=== PATIENT | male | born 1960 | race Caucasian/White ===

== ENCOUNTER 2016-08-10 13:02 | Emergency (ER) | payer BC ==
[~2016-08-10] VITALS: Ht 182.9 cm; Wt 76.0 kg
[~2016-08-10 13:02] MED LIST: IBUP200C; IBUP200C PO; INSU100I13 SQ-INSULIN; INSU100V5 SQ-INSULIN; RANI150T8; TRAM-28 PO
[2016-08-10 13:10] VITALS: BP 109/80
[2016-08-10] MEDS ORDERED: INSU100V8 SQ (13:19)
[2016-08-10] MEDS ORDERED: MORPHINE SULFATE 4 MG/ML, 1ML ONE ×2 (13:22→14:29)
[2016-08-10] MEDS ORDERED: ONDANSETRON 2MG/ML, 2ML ONE (13:23)
[2016-08-10] MEDS: MORPHINE SULFATE 4 MG/ML, 1ML IVPush PRN ×2 (13:29→14:34)
[2016-08-10] MEDS ORDERED: ONDANSETRON 2MG/ML, 2ML IVPush ONE (13:30)
[2016-08-10 13:32] LABS: PATH.CAST-FLAG NOT PRESENT; SPERM-FLAG NOT PRESENT; SRC-FLAG NOT PRESENT; XTAL-FLAG NOT PRESENT; YLC-FLAG NOT PRESENT
[2016-08-10 13:50] LABS: BLOOD UREA NITROGEN 5 mg/dL (7-18)
[2016-08-10 13:53] LABS: ASPARTATE AMINO TRANSFERASE 61 U/L (15-37)
[2016-08-10] MEDS ORDERED: SODIUM CHLORIDE 0.9% 1,000ML IVBOLUS ONE (14:00)
[2016-08-10] MEDS ORDERED: INSULIN REGULAR 100 UNITS/ML, 3ML VIAL IVPush ONE (14:00)
== END 2016-08-10 14:54 | disposition home or self-care (01) ==
LOC: ED 13:44
DX: K80.20 Calculus of gallbladder without cholecystitis without obstruction (principal); J90 Pleural effusion, not elsewhere classified; C64.9 Malignant neoplasm of unspecified kidney, except renal pelvis; C78.7 Secondary malignant neoplasm of liver and intrahepatic bile duct; E11.9 Type 2 diabetes mellitus without complications; F17.200 Nicotine dependence, unspecified, uncomplicated; K76.0 Fatty (change of) liver, not elsewhere classified; Z90.5 Acquired absence of kidney; Z85.528 Personal history of other malignant neoplasm of kidney
CPT/HCPCS: 36415; 74176; 80053; 81001; 83690; 85025; 96361; 96374; 96375; 96376; 99285; J2405; J7030

== ENCOUNTER 2016-08-14 10:47 | Inpatient (IN) | payer BC ==
[~2016-08-14] VITALS: Ht 182.9 cm; Wt 81.2 kg
[~2016-08-14 10:47] MED LIST changes: +INSU100V8 SQ
[2016-08-14] MEDS ORDERED: SODIUM CHLORIDE 0.9% 1,000ML IVBOLUS ONE (11:30)
[2016-08-14] MEDS ORDERED: INSULIN REGULAR 100 UNITS/ML, 3ML VIAL SQ-INSULIN ONE (11:30)
[2016-08-14] MEDS ORDERED: SODIUM CHLORIDE 0.9% 1,000 ML IV ONE (11:41)
[2016-08-14] MEDS ORDERED: HYDROmorphone 1 MG/ML, 1ML ONE (11:41)
[2016-08-14] MEDS ORDERED: LORazepam 2 MG/ML, 1ML ONE (11:59)
[2016-08-14] MEDS ORDERED: LORazepam 2 MG/ML, 1ML IVPush ONE (12:00)
[2016-08-14] MEDS ORDERED: HYDROmorphone 2 MG/ML, 1ML IVPush ONE (12:00)
[2016-08-14 12:17] LABS: ASPARTATE AMINO TRANSFERASE 19 U/L (15-37); BLOOD UREA NITROGEN 17 mg/dL (7-18)
[2016-08-14 12:19] LABS: ACETAMINOPHEN 7 mcg/mL (10-30)
[2016-08-14] MEDS ORDERED: INSULIN SINGLE DOSE, ER SQ-INSULIN ONE (12:21)
[2016-08-14] MEDS ORDERED: POTASSIUM CHLORIDE 20 MEQ TAB.ER.PRT PO ONE (12:30)
[2016-08-14] MEDS ORDERED: CEFTRIAXONE PMX 1GM/50ML 50 ML ONE (12:50)
[2016-08-14] MEDS ORDERED: POTASSIUM CHLORIDE 20 MEQ TAB.ER.PRT ONE (12:50)
[2016-08-14] MEDS ORDERED: AZITHROMYCIN 500 MG in SODIUM CHLORIDE 0.9% 250 ML IV ONE (13:00)
[2016-08-14] MEDS ORDERED: CEFTRIAXONE PMX 1GM/50ML 50 ML IV ONE (13:00)
[2016-08-14] MEDS ORDERED: ONDANSETRON 2MG/ML, 2ML ONE (13:38)
[2016-08-14] MEDS ORDERED: LORazepam 2 MG/ML, 1ML IVPush PRN (14:30)
[2016-08-14] MEDS ORDERED: CEFTRIAXONE PMX 1GM/50ML 50 ML IV SCH (14:30)
[2016-08-14] MEDS ORDERED: POTASSIUM PHOSPHATE 22 MEQ in SODIUM CHLORIDE 0.9% 500 ML IV ONE (15:00)
[2016-08-14] MEDS ORDERED: PHARMACY MAY ADJ FOR RENAL FX MC PRN (15:30)
[2016-08-14] MEDS ORDERED: ENOXAPARIN 40 MG/0.4 ML SQ SCH (15:30)
[2016-08-14] MEDS ORDERED: BISACODYL 10 MG SUPP PR PRN (15:30)
[2016-08-14] MEDS ORDERED: ONDANSETRON 2MG/ML, 2ML IVPB PRN (15:30)
[2016-08-14] MEDS ORDERED: DOCUSATE 100 MG CAPSULE PO PRN (15:30)
[2016-08-14] MEDS: OXYcodone IR 5MG TABLET PO PRN ×2 (15:51→22:30)
[2016-08-14] MEDS: LACTOBACILLUS CHEW TABLET PO SCH ×2 (15:52→21:10)
[2016-08-14] MEDS: GUAIFENESIN 200 MG TABLET PO SCH ×2 (15:52→21:10)
[2016-08-14] MEDS: POTASSIUM CHLORIDE 20 MEQ TAB.ER.PRT PO SCH (15:52)
[2016-08-14] MEDS: CLINDAMYCIN PMX 900MG/50ML 50 ML IV SCH (16:03)
[2016-08-14] MEDS: INSULIN DETEMIR 100 UNITS/ML, PEN SQ-INSULIN SCH (16:41)
[2016-08-14] MEDS: INSULIN ASPART 100 UNITS/ML, PEN SQ-INSULIN SCH ×2 (16:42→21:10)
[2016-08-14 17:35] LABS: BLOOD UREA NITROGEN 17 mg/dL (7-18)
[2016-08-14] MEDS: SODIUM CHLORIDE 0.9% 1,000 ML IV SCH (18:22)
[2016-08-14 18:54] LABS: PATH.CAST-FLAG NOT PRESENT; SPERM-FLAG NOT PRESENT; SRC-FLAG NOT PRESENT; XTAL-FLAG NOT PRESENT; YLC-FLAG NOT PRESENT
[2016-08-14 19:01] VITALS: BP 127/75
[2016-08-14] MEDS: MORPHINE SULFATE 4 MG/ML, 1ML IVPush PRN (19:32)
[2016-08-14] MEDS ORDERED: OMNIPAQUE 350 MG/ML, 100ML BOTTLE ONE (20:58)
[2016-08-15] MEDS: CLINDAMYCIN PMX 900MG/50ML 50 ML IV SCH ×3 (00:14→16:21)
[2016-08-15] MEDS: ACETAMINOPHEN 325 MG TABLET PO PRN ×2 (03:02→13:27)
[2016-08-15] MEDS: MORPHINE SULFATE 4 MG/ML, 1ML IVPush PRN ×2 (03:02→08:34)
[2016-08-15 03:22] VITALS: BP 147/77
[2016-08-15] MEDS: SODIUM CHLORIDE 0.9% 1,000 ML IV SCH ×2 (05:00→21:29)
[2016-08-15] MEDS: INSULIN DETEMIR 100 UNITS/ML, PEN SQ-INSULIN SCH ×2 (05:00→16:22)
[2016-08-15 05:49] LABS: BLOOD UREA NITROGEN 14 mg/dL (7-18)
[2016-08-15] MEDS: LACTOBACILLUS CHEW TABLET PO SCH ×4 (05:58→21:27)
[2016-08-15] MEDS: GUAIFENESIN 200 MG TABLET PO SCH ×4 (05:58→21:27)
[2016-08-15] MEDS: INSULIN ASPART 100 UNITS/ML, PEN SQ-INSULIN SCH ×4 (07:00→21:28)
[2016-08-15 07:59] VITALS: BP 109/66
[2016-08-15] MEDS: POTASSIUM CHLORIDE 20 MEQ TAB.ER.PRT PO SCH (08:00)
[2016-08-15] MEDS: CEFTRIAXONE PMX 1GM/50ML 50 ML IV SCH ×2 (08:35→21:27)
[2016-08-15] MEDS: FOLIC ACID 1 MG TABLET PO SCH (09:00)
[2016-08-15] MEDS: THIAMINE 100MG TABLET PO SCH (09:00)
[2016-08-15] MEDS: LISINOPRIL 5 MG TABLET PO SCH (09:00)
[2016-08-15] MEDS ORDERED: MORPHINE SULFATE 4 MG/ML, 1ML IVPush PRN (11:00)
[2016-08-15] MEDS: DOXYCYCLINE 100 MG in DEXTROSE 5% 250 ML IV SCH (11:26)
[2016-08-15] MEDS: HYDROmorphone 1 MG/ML, 1ML IV PRN ×4 (11:54→23:29)
[2016-08-15] MEDS ORDERED: POTASSIUM PHOSPHATE 22 MEQ in SODIUM CHLORIDE 0.9% 500 ML IV ONE (12:30)
[2016-08-15 13:59] VITALS: BP 113/71
[2016-08-15 19:17] VITALS: BP 106/65
[2016-08-16] MEDS: CLINDAMYCIN PMX 900MG/50ML 50 ML IV SCH ×3 (00:01→16:16)
[2016-08-16] MEDS: DOXYCYCLINE 100 MG in DEXTROSE 5% 250 ML IV SCH ×2 (00:24→13:00)
[2016-08-16] MEDS: ACETAMINOPHEN 325 MG TABLET PO PRN ×2 (00:56→19:44)
[2016-08-16 01:07] VITALS: BP 95/57
[2016-08-16] MEDS: HYDROmorphone 1 MG/ML, 1ML IV PRN ×7 (02:35→22:38)
[2016-08-16] MEDS: INSULIN DETEMIR 100 UNITS/ML, PEN SQ-INSULIN SCH ×2 (05:00→17:17)
[2016-08-16 05:16] LABS: BLOOD UREA NITROGEN 12 mg/dL (7-18)
[2016-08-16] MEDS: LACTOBACILLUS CHEW TABLET PO SCH ×4 (05:37→19:45)
[2016-08-16] MEDS: GUAIFENESIN 200 MG TABLET PO SCH ×4 (05:41→19:45)
[2016-08-16] MEDS: INSULIN ASPART 100 UNITS/ML, PEN SQ-INSULIN SCH ×4 (07:00→22:38)
[2016-08-16 07:30] VITALS: BP 109/67
[2016-08-16] MEDS: CEFTRIAXONE PMX 1GM/50ML 50 ML IV SCH ×2 (09:38→22:34)
[2016-08-16] MEDS: SODIUM CHLORIDE 0.9% 1,000 ML IV SCH ×2 (11:16→21:49)
[2016-08-16 12:52] VITALS: BP 116/73
[2016-08-16] MEDS: FOLIC ACID 1 MG TABLET PO SCH (12:59)
[2016-08-16] MEDS: LISINOPRIL 5 MG TABLET PO SCH (12:59)
[2016-08-16] MEDS: THIAMINE 100MG TABLET PO SCH (12:59)
[2016-08-16 19:35] VITALS: BP 108/66
[2016-08-17] MEDS: CLINDAMYCIN PMX 900MG/50ML 50 ML IV SCH ×3 (00:41→18:36)
[2016-08-17 01:14] VITALS: BP 111/68
[2016-08-17] MEDS: HYDROmorphone 1 MG/ML, 1ML IV PRN ×3 (01:41→08:20)
[2016-08-17] MEDS: DOXYCYCLINE 100 MG in DEXTROSE 5% 250 ML IV SCH ×2 (01:41→17:10)
[2016-08-17] MEDS: INSULIN DETEMIR 100 UNITS/ML, PEN SQ-INSULIN SCH ×2 (04:55→17:57)
[2016-08-17 05:30] LABS: BLOOD UREA NITROGEN 13 mg/dL (7-18)
[2016-08-17] MEDS: GUAIFENESIN 200 MG TABLET PO SCH ×4 (05:56→21:59)
[2016-08-17] MEDS: LACTOBACILLUS CHEW TABLET PO SCH ×4 (05:56→21:59)
[2016-08-17] MEDS: INSULIN ASPART 100 UNITS/ML, PEN SQ-INSULIN SCH ×4 (07:00→22:09)
[2016-08-17 08:00] VITALS: BP 115/68
[2016-08-17] MEDS ORDERED: POTASSIUM CHLORIDE 20 MEQ in SODIUM CHLORIDE 0.9% 250 ML IV ONE (08:00)
[2016-08-17] MEDS: CEFTRIAXONE PMX 1GM/50ML 50 ML IV SCH (08:19)
[2016-08-17] MEDS: FOLIC ACID 1 MG TABLET PO SCH (08:41)
[2016-08-17] MEDS: THIAMINE 100MG TABLET PO SCH (08:41)
[2016-08-17] MEDS: LISINOPRIL 5 MG TABLET PO SCH (08:41)
[2016-08-17] MEDS ORDERED: BUPIVACAINE/PF-EPI 0.5% 1:200K ONE (08:51)
[2016-08-17] MEDS ORDERED: FENTANYL PF 250 MCG/5ML ONE (09:36)
[2016-08-17] MEDS ORDERED: MIDAZOLAM 1 MG/ML, 2ML ONE (09:36)
[2016-08-17] MEDS ORDERED: EPHEDRINE 50 MG/ML, 1ML ONE (09:43)
[2016-08-17] MEDS ORDERED: PHENYLEPHRINE 10 MG/ML ONE (09:43)
[2016-08-17] MEDS ORDERED: ROCURONIUM 10 MG/ML ONE (09:43)
[2016-08-17] MEDS ORDERED: SUCCINYLCHOLINE 20 MG/ML, 10ML ONE (09:43)
[2016-08-17] MEDS ORDERED: GLYCOPYRROLATE 0.2MG/1ML ONE (09:43)
[2016-08-17] MEDS ORDERED: PROPOFOL 10 MG/ML, 20ML ONE (09:43)
[2016-08-17] MEDS ORDERED: ONDANSETRON 2MG/ML, 2ML ONE (09:43)
[2016-08-17] MEDS ORDERED: NEOSTIGMINE 1 MG/ML, 10ML ONE (09:43)
[2016-08-17] MEDS ORDERED: TALC 30 GM AERO.PWD INTRAPL ONE (09:53)
[2016-08-17] MEDS ORDERED: OXYcodone 5 MG/5 ML ORAL.SOL UDC PO PRN (10:30)
[2016-08-17] MEDS ORDERED: hydrALAzine 20 MG/ML, 1ML IV PRN (10:30)
[2016-08-17] MEDS ORDERED: ONDANSETRON 2MG/ML, 2ML IVPush PRN (10:30)
[2016-08-17] MEDS ORDERED: HYDROmorphone 1 MG/ML, 1ML IV PRN (10:30)
[2016-08-17] MEDS ORDERED: LABETALOL 5MG/ML, 20ML IV PRN (10:30)
[2016-08-17] MEDS ORDERED: ALBUTEROL SULFATE 2.5 MG/3 ML NPPB PRN (10:30)
[2016-08-17] MEDS ORDERED: FENTANYL PF 100 MCG/2ML ONE (11:17)
[2016-08-17] MEDS ORDERED: OXYcodone 5 MG/5 ML ORAL.SOL UDC ONE (11:17)
[2016-08-17] MEDS: FENTANYL PF 100 MCG/2ML IV PRN ×2 (11:24→11:41)
[2016-08-17] MEDS ORDERED: HYDROmorphone 1 MG/ML, 1ML ONE (12:09)
[2016-08-17] MEDS: HYDROmorphone 2 MG/ML, 1ML IVPush PRN ×4 (14:16→23:08)
[2016-08-17] MEDS: SODIUM CHLORIDE 0.9% 1,000 ML IV SCH ×2 (14:32→17:30)
[2016-08-17] MEDS: OXYcodone IR 5MG TABLET PO PRN (18:06)
[2016-08-17] MEDS: CEFTRIAXONE 1,000 MG in SODIUM CHLORIDE 0.9% 50 ML IVPB SCH (21:58)
[2016-08-17 23:09] VITALS: BP 98/59
[2016-08-18] MEDS: SODIUM CHLORIDE 0.9% 1,000 ML IV SCH ×2 (00:41→10:48)
[2016-08-18] MEDS: HYDROmorphone 2 MG/ML, 1ML IVPush PRN ×9 (02:18→22:34)
[2016-08-18] MEDS: CLINDAMYCIN PMX 900MG/50ML 50 ML IV SCH ×3 (02:19→18:29)
[2016-08-18 04:59] VITALS: BP 96/52
[2016-08-18] MEDS: DOXYCYCLINE 100 MG in DEXTROSE 5% 250 ML IV SCH ×2 (05:12→16:55)
[2016-08-18 05:34] LABS: BLOOD UREA NITROGEN 13 mg/dL (7-18)
[2016-08-18] MEDS: INSULIN DETEMIR 100 UNITS/ML, PEN SQ-INSULIN SCH ×2 (05:47→16:55)
[2016-08-18 06:44] LABS: DIFF TOTAL CELLS COUNTED 100 CELL DIFF
[2016-08-18 06:49] LABS: ANISOCYTOSIS 1+; VERIFY COUNTS? YES
[2016-08-18] MEDS: INSULIN ASPART 100 UNITS/ML, PEN SQ-INSULIN SCH ×4 (07:00→21:26)
[2016-08-18] MEDS: LACTOBACILLUS CHEW TABLET PO SCH ×4 (07:18→21:25)
[2016-08-18] MEDS: GUAIFENESIN 200 MG TABLET PO SCH ×4 (07:18→21:25)
[2016-08-18 07:51] VITALS: BP 95/64
[2016-08-18] MEDS: LISINOPRIL 5 MG TABLET PO SCH (09:00)
[2016-08-18] MEDS: CEFTRIAXONE 1,000 MG in SODIUM CHLORIDE 0.9% 50 ML IVPB SCH ×2 (09:56→21:25)
[2016-08-18] MEDS: THIAMINE 100MG TABLET PO SCH (09:56)
[2016-08-18] MEDS: FOLIC ACID 1 MG TABLET PO SCH (09:56)
[2016-08-18] MEDS: OXYcodone IR 5MG TABLET PO PRN ×3 (09:57→21:25)
[2016-08-18 14:14] VITALS: BP 103/59
[2016-08-18 18:59] VITALS: BP 110/62
[2016-08-19] MEDS: CLINDAMYCIN PMX 900MG/50ML 50 ML IV SCH ×2 (02:04→10:04)
[2016-08-19] MEDS: HYDROmorphone 2 MG/ML, 1ML IVPush PRN ×7 (02:04→21:19)
[2016-08-19 04:14] VITALS: BP 96/58
[2016-08-19] MEDS: DOXYCYCLINE 100 MG in DEXTROSE 5% 250 ML IV SCH (05:32)
[2016-08-19] MEDS: INSULIN DETEMIR 100 UNITS/ML, PEN SQ-INSULIN SCH ×2 (05:33→16:40)
[2016-08-19] MEDS: OXYcodone IR 5MG TABLET PO PRN ×3 (05:38→18:01)
[2016-08-19 05:39] LABS: BLOOD UREA NITROGEN 13 mg/dL (7-18)
[2016-08-19] MEDS: LACTOBACILLUS CHEW TABLET PO SCH ×4 (06:30→21:23)
[2016-08-19] MEDS: GUAIFENESIN 200 MG TABLET PO SCH ×4 (06:30→21:23)
[2016-08-19] MEDS: INSULIN ASPART 100 UNITS/ML, PEN SQ-INSULIN SCH ×4 (07:41→22:04)
[2016-08-19 07:46] VITALS: BP 114/60
[2016-08-19] MEDS: LISINOPRIL 5 MG TABLET PO SCH (09:20)
[2016-08-19] MEDS: CEFTRIAXONE 1,000 MG in SODIUM CHLORIDE 0.9% 50 ML IVPB SCH (09:20)
[2016-08-19] MEDS: THIAMINE 100MG TABLET PO SCH (09:20)
[2016-08-19] MEDS: FOLIC ACID 1 MG TABLET PO SCH (09:20)
[2016-08-19] MEDS: ENOXAPARIN 40 MG/0.4 ML SQ SCH (11:26)
[2016-08-19 14:20] VITALS: BP 109/62
[2016-08-19] MEDS: POLYETHYLENE GLYCOL 17 GM PACKET PO SCH (14:32)
[2016-08-19] MEDS: AMPICILLIN/SULBACTAM 3 GM in SODIUM CHLORIDE 0.9% 100 ML IV SCH ×2 (16:05→21:23)
[2016-08-19 19:23] VITALS: BP 108/62
[2016-08-20] MEDS: OXYcodone IR 5MG TABLET PO PRN ×4 (00:49→18:45)
[2016-08-20] MEDS: HYDROmorphone 2 MG/ML, 1ML IVPush PRN ×9 (01:10→23:18)
[2016-08-20 01:30] VITALS: BP 102/53
[2016-08-20] MEDS: AMPICILLIN/SULBACTAM 3 GM in SODIUM CHLORIDE 0.9% 100 ML IV SCH ×4 (04:17→22:30)
[2016-08-20 05:12] LABS: BLOOD UREA NITROGEN 8 mg/dL (7-18)
[2016-08-20] MEDS: LACTOBACILLUS CHEW TABLET PO SCH ×4 (05:33→22:33)
[2016-08-20] MEDS: GUAIFENESIN 200 MG TABLET PO SCH ×4 (05:33→22:33)
[2016-08-20] MEDS: INSULIN DETEMIR 100 UNITS/ML, PEN SQ-INSULIN SCH ×2 (05:46→17:09)
[2016-08-20] MEDS: INSULIN ASPART 100 UNITS/ML, PEN SQ-INSULIN SCH ×4 (07:00→22:37)
[2016-08-20] MEDS: POLYETHYLENE GLYCOL 17 GM PACKET PO SCH (08:30)
[2016-08-20] MEDS: LISINOPRIL 5 MG TABLET PO SCH (08:30)
[2016-08-20] MEDS ORDERED: ALBUTEROL SULFATE 2.5 MG/3 ML NPPB PRN (08:30)
[2016-08-20] MEDS: THIAMINE 100MG TABLET PO SCH (08:30)
[2016-08-20] MEDS: FOLIC ACID 1 MG TABLET PO SCH (08:30)
[2016-08-20 08:37] VITALS: BP 115/66
[2016-08-20] MEDS: FUROSEMIDE 40 MG/4 ML IV SCH (10:17)
[2016-08-20] MEDS: DOCUSATE 100 MG CAPSULE PO SCH ×2 (10:17→22:33)
[2016-08-20] MEDS: ENOXAPARIN 40 MG/0.4 ML SQ SCH (10:42)
[2016-08-20 15:20] VITALS: BP 107/59
[2016-08-20 20:25] VITALS: BP 117/60
[2016-08-21 02:07] VITALS: BP 117/59
[2016-08-21] MEDS: HYDROmorphone 2 MG/ML, 1ML IVPush PRN ×6 (02:43→21:42)
[2016-08-21] MEDS: GUAIFENESIN 200 MG TABLET PO SCH ×4 (05:38→21:22)
[2016-08-21] MEDS: AMPICILLIN/SULBACTAM 3 GM in SODIUM CHLORIDE 0.9% 100 ML IV SCH ×4 (05:38→21:42)
[2016-08-21] MEDS: LACTOBACILLUS CHEW TABLET PO SCH ×4 (05:38→21:22)
[2016-08-21] MEDS: OXYcodone IR 5MG TABLET PO PRN ×4 (05:48→23:58)
[2016-08-21] MEDS: INSULIN DETEMIR 100 UNITS/ML, PEN SQ-INSULIN SCH ×2 (05:53→16:16)
[2016-08-21] MEDS: INSULIN ASPART 100 UNITS/ML, PEN SQ-INSULIN SCH ×4 (07:16→21:22)
[2016-08-21 07:57] VITALS: BP 120/69
[2016-08-21] MEDS: FUROSEMIDE 40 MG/4 ML IV SCH (08:20)
[2016-08-21] MEDS: POLYETHYLENE GLYCOL 17 GM PACKET PO SCH (09:00)
[2016-08-21] MEDS: LISINOPRIL 5 MG TABLET PO SCH (09:31)
[2016-08-21] MEDS: FOLIC ACID 1 MG TABLET PO SCH (09:32)
[2016-08-21] MEDS: THIAMINE 100MG TABLET PO SCH (09:32)
[2016-08-21] MEDS: DOCUSATE 100 MG CAPSULE PO SCH ×2 (09:33→21:22)
[2016-08-21] MEDS: ENOXAPARIN 40 MG/0.4 ML SQ SCH (11:46)
[2016-08-21 14:53] VITALS: BP 111/62
[2016-08-21 14:57] VITALS: BP 109/62
[2016-08-21 21:30] VITALS: BP 117/66
[2016-08-22] MEDS: HYDROmorphone 2 MG/ML, 1ML IVPush PRN ×5 (01:02→13:53)
[2016-08-22] MEDS: AMPICILLIN/SULBACTAM 3 GM in SODIUM CHLORIDE 0.9% 100 ML IV SCH ×4 (04:13→22:06)
[2016-08-22] MEDS: INSULIN DETEMIR 100 UNITS/ML, PEN SQ-INSULIN SCH ×2 (04:27→16:54)
[2016-08-22 04:35] VITALS: BP 107/66
[2016-08-22] MEDS: GUAIFENESIN 200 MG TABLET PO SCH ×4 (06:37→21:02)
[2016-08-22] MEDS: LACTOBACILLUS CHEW TABLET PO SCH ×4 (06:37→21:02)
[2016-08-22] MEDS: OXYcodone IR 5MG TABLET PO PRN ×4 (06:38→22:06)
[2016-08-22] MEDS: INSULIN ASPART 100 UNITS/ML, PEN SQ-INSULIN SCH ×4 (07:00→21:12)
[2016-08-22] MEDS: FOLIC ACID 1 MG TABLET PO SCH (08:38)
[2016-08-22] MEDS: THIAMINE 100MG TABLET PO SCH (08:38)
[2016-08-22] MEDS: DOCUSATE 100 MG CAPSULE PO SCH ×2 (08:39→21:03)
[2016-08-22] MEDS: POLYETHYLENE GLYCOL 17 GM PACKET PO SCH (08:39)
[2016-08-22] MEDS: FUROSEMIDE 40 MG/4 ML IV SCH (08:39)
[2016-08-22] MEDS: LISINOPRIL 5 MG TABLET PO SCH (08:40)
[2016-08-22 08:41] VITALS: BP 108/56
[2016-08-22] MEDS: ENOXAPARIN 40 MG/0.4 ML SQ SCH (10:11)
[2016-08-22 12:38] VITALS: BP 103/60
[2016-08-22] MEDS ORDERED: HYDROmorphone 2 MG/ML, 1ML IVPush PRN (17:00)
[2016-08-22] MEDS ORDERED: OXYcodone IR 5MG TABLET ONE (17:34)
[2016-08-22] MEDS ORDERED: HYDROmorphone 1 MG/ML, 1ML IV ONE (18:30)
[2016-08-22 20:02] VITALS: BP 114/67
[2016-08-23 01:14] VITALS: BP 115/69
[2016-08-23] MEDS: OXYcodone IR 5MG TABLET PO PRN ×5 (02:23→21:32)
[2016-08-23] MEDS: AMPICILLIN/SULBACTAM 3 GM in SODIUM CHLORIDE 0.9% 100 ML IV SCH ×4 (03:47→23:28)
[2016-08-23 04:07] LABS: BLOOD UREA NITROGEN 7 mg/dL (7-18)
[2016-08-23] MEDS: INSULIN ASPART 100 UNITS/ML, PEN SQ-INSULIN SCH ×4 (06:26→21:33)
[2016-08-23] MEDS: LACTOBACILLUS CHEW TABLET PO SCH ×4 (06:30→21:32)
[2016-08-23] MEDS: GUAIFENESIN 200 MG TABLET PO SCH ×4 (06:30→21:32)
[2016-08-23 08:09] VITALS: BP 117/66
[2016-08-23] MEDS: DOCUSATE 100 MG CAPSULE PO SCH ×2 (09:51→21:32)
[2016-08-23] MEDS: THIAMINE 100MG TABLET PO SCH (09:51)
[2016-08-23] MEDS: LISINOPRIL 5 MG TABLET PO SCH (09:52)
[2016-08-23] MEDS: FOLIC ACID 1 MG TABLET PO SCH (09:52)
[2016-08-23] MEDS: FUROSEMIDE 40 MG/4 ML IV SCH (09:52)
[2016-08-23] MEDS: POLYETHYLENE GLYCOL 17 GM PACKET PO SCH (09:52)
[2016-08-23] MEDS ORDERED: ALBUTEROL SULFATE 2.5 MG/3 ML ONE (10:01)
[2016-08-23] MEDS: INSULIN DETEMIR 100 UNITS/ML, PEN SQ-INSULIN SCH ×2 (10:13→21:33)
[2016-08-23] MEDS ORDERED: ALBUTEROL SULFATE 2.5 MG/3 ML NPPB PRN (10:30)
[2016-08-23] MEDS: ENOXAPARIN 40 MG/0.4 ML SQ SCH (11:40)
[2016-08-23 13:46] VITALS: BP 103/63
[2016-08-23 20:07] VITALS: BP 114/69
[2016-08-24 01:14] VITALS: BP 121/70
[2016-08-24] MEDS: OXYcodone IR 5MG TABLET PO PRN ×6 (02:02→22:35)
[2016-08-24] MEDS: AMPICILLIN/SULBACTAM 3 GM in SODIUM CHLORIDE 0.9% 100 ML IV SCH ×4 (05:42→23:15)
[2016-08-24] MEDS: LACTOBACILLUS CHEW TABLET PO SCH ×4 (05:42→22:35)
[2016-08-24] MEDS: GUAIFENESIN 200 MG TABLET PO SCH ×4 (05:42→22:35)
[2016-08-24] MEDS: INSULIN ASPART 100 UNITS/ML, PEN SQ-INSULIN SCH ×4 (06:00→22:36)
[2016-08-24 06:17] LABS: BLOOD UREA NITROGEN 9 mg/dL (7-18)
[2016-08-24] MEDS: FUROSEMIDE 40 MG/4 ML IV SCH (08:26)
[2016-08-24] MEDS: LISINOPRIL 5 MG TABLET PO SCH (08:26)
[2016-08-24] MEDS: FOLIC ACID 1 MG TABLET PO SCH (08:26)
[2016-08-24] MEDS: DOCUSATE 100 MG CAPSULE PO SCH ×2 (08:26→22:35)
[2016-08-24] MEDS: THIAMINE 100MG TABLET PO SCH (08:26)
[2016-08-24] MEDS: INSULIN DETEMIR 100 UNITS/ML, PEN SQ-INSULIN SCH ×2 (08:30→22:36)
[2016-08-24] MEDS: POLYETHYLENE GLYCOL 17 GM PACKET PO SCH (08:30)
[2016-08-24 09:38] VITALS: BP 107/64
[2016-08-24] MEDS: ENOXAPARIN 40 MG/0.4 ML SQ SCH (11:44)
[2016-08-24 13:46] VITALS: BP 104/66
[2016-08-24 19:44] VITALS: BP 104/68
[2016-08-24] MEDS: ACETAMINOPHEN 325 MG TABLET PO PRN (23:27)
[2016-08-25 02:54] VITALS: BP 106/63
[2016-08-25] MEDS: LACTOBACILLUS CHEW TABLET PO SCH ×4 (05:47→22:09)
[2016-08-25] MEDS: OXYcodone IR 5MG TABLET PO PRN ×5 (05:47→22:21)
[2016-08-25] MEDS: GUAIFENESIN 200 MG TABLET PO SCH ×4 (05:47→22:09)
[2016-08-25] MEDS: AMPICILLIN/SULBACTAM 3 GM in SODIUM CHLORIDE 0.9% 100 ML IV SCH ×4 (05:47→23:58)
[2016-08-25 06:31] LABS: BLOOD UREA NITROGEN 11 mg/dL (7-18)
[2016-08-25 07:42] VITALS: BP 112/63
[2016-08-25] MEDS: FUROSEMIDE 40 MG/4 ML IV SCH (08:09)
[2016-08-25] MEDS: DOCUSATE 100 MG CAPSULE PO SCH ×2 (08:11→22:09)
[2016-08-25] MEDS: LISINOPRIL 5 MG TABLET PO SCH (08:11)
[2016-08-25] MEDS: THIAMINE 100MG TABLET PO SCH (08:11)
[2016-08-25] MEDS: FOLIC ACID 1 MG TABLET PO SCH (08:11)
[2016-08-25] MEDS: INSULIN DETEMIR 100 UNITS/ML, PEN SQ-INSULIN SCH ×2 (08:13→22:21)
[2016-08-25] MEDS: INSULIN ASPART 100 UNITS/ML, PEN SQ-INSULIN SCH ×4 (08:13→22:20)
[2016-08-25] MEDS: POLYETHYLENE GLYCOL 17 GM PACKET PO SCH (08:15)
[2016-08-25] MEDS: ENOXAPARIN 40 MG/0.4 ML SQ SCH (12:12)
[2016-08-25 13:39] VITALS: BP 101/61
[2016-08-25 19:33] VITALS: BP 114/69
[2016-08-26 02:30] VITALS: BP 104/62
[2016-08-26] MEDS: OXYcodone IR 5MG TABLET PO PRN ×5 (02:31→23:15)
[2016-08-26] MEDS: LACTOBACILLUS CHEW TABLET PO SCH ×3 (06:00→22:20)
[2016-08-26] MEDS: AMPICILLIN/SULBACTAM 3 GM in SODIUM CHLORIDE 0.9% 100 ML IV SCH ×2 (06:00→11:30)
[2016-08-26] MEDS: GUAIFENESIN 200 MG TABLET PO SCH ×3 (06:07→22:20)
[2016-08-26] MEDS: DOCUSATE 100 MG CAPSULE PO SCH ×2 (09:15→22:20)
[2016-08-26] MEDS: FUROSEMIDE 40 MG/4 ML IV SCH (09:15)
[2016-08-26] MEDS: FOLIC ACID 1 MG TABLET PO SCH (09:15)
[2016-08-26] MEDS: THIAMINE 100MG TABLET PO SCH (09:15)
[2016-08-26] MEDS: LISINOPRIL 5 MG TABLET PO SCH (09:15)
[2016-08-26] MEDS: ENOXAPARIN 40 MG/0.4 ML SQ SCH (10:45)
[2016-08-26] MEDS: INSULIN ASPART 100 UNITS/ML, PEN SQ-INSULIN SCH ×3 (11:00→23:00)
[2016-08-26] MEDS: INSULIN DETEMIR 100 UNITS/ML, PEN SQ-INSULIN SCH (23:00)
[2016-08-27] MEDS: AMPICILLIN/SULBACTAM 3 GM in SODIUM CHLORIDE 0.9% 100 ML IV SCH (00:30)
[2016-08-27] MEDS: OXYcodone IR 5MG TABLET PO PRN (04:50)
[2016-08-27] MEDS: LACTOBACILLUS CHEW TABLET PO SCH (05:06)
[2016-08-27] MEDS: GUAIFENESIN 200 MG TABLET PO SCH (05:06)
[2016-08-27] MEDS: INSULIN ASPART 100 UNITS/ML, PEN SQ-INSULIN SCH (10:00)
[2016-08-27 16:54] LABS: BLOOD UREA NITROGEN 14 mg/dL (7-18)
== END 2016-08-27 12:00 | disposition home or self-care (01) | DRG 853 ==
LOC: ED 12:32 → EDIP 12:33 → ED 12:59 → 3NE 14:40 → 4NOR 08-17 12:51 → DCLOUNGE 08-27 11:28
PROVIDERS: ADMIT Internal Medicine; ATTEND Internal Medicine
PROC: 0BDN4ZZ Extraction of Right Pleura, Percutaneous Endoscopic Approach (ICD-10-PCS; principal; 2016-08-17 09:30)
PROC: 02HV33Z Insertion of Infusion Device into Superior Vena Cava, Percutaneous Approach (ICD-10-PCS; 2016-08-20)
PROC: B548ZZA Ultrasonography of Superior Vena Cava, Guidance (ICD-10-PCS; 2016-08-20)
PROC: B5181ZA Fluoroscopy of Superior Vena Cava using Low Osmolar Contrast, Guidance (ICD-10-PCS; 2016-08-20)
DX: A41.9 Sepsis, unspecified organism (principal); E43 Unspecified severe protein-calorie malnutrition; J18.9 Pneumonia, unspecified organism; J86.9 Pyothorax without fistula; J96.01 Acute respiratory failure with hypoxia; E87.1 Hypo-osmolality and hyponatremia; J98.11 Atelectasis; J90 Pleural effusion, not elsewhere classified; K86.3 Pseudocyst of pancreas; E11.65 Type 2 diabetes mellitus with hyperglycemia; Z79.4 Long term (current) use of insulin; Z85.528 Personal history of other malignant neoplasm of kidney; Z80.42 Family history of malignant neoplasm of prostate; Z66 Do not resuscitate; I10 Essential (primary) hypertension; E87.6 Hypokalemia; Z88.8 Allergy status to other drugs, medicaments and biological substances; Z91.041 Radiographic dye allergy status; D53.9 Nutritional anemia, unspecified; D63.8 Anemia in other chronic diseases classified elsewhere; D75.89 Other specified diseases of blood and blood-forming organs; E83.39 Other disorders of phosphorus metabolism; E87.8 Other disorders of electrolyte and fluid balance, not elsewhere classified; F17.210 Nicotine dependence, cigarettes, uncomplicated; K70.30 Alcoholic cirrhosis of liver without ascites; K76.0 Fatty (change of) liver, not elsewhere classified; K80.20 Calculus of gallbladder without cholecystitis without obstruction; Z80.7 Family history of other malignant neoplasms of lymphoid, hematopoietic and related tissues; Z91.19 Patient's noncompliance with other medical treatment and regimen; Z90.5 Acquired absence of kidney; F10.20 Alcohol dependence, uncomplicated
CPT/HCPCS: 36415; 36569; 71010; 71260; 76937; 77001; 80048; 80053; 80307; 81001; 82010; 82803; 82962; 83036; 83605; 83690; 83735; 84100; 84145; 85025; 85651; 86140; 87040; 87070; 87075; 87205; 88304; 93005; 94640; 96361; 96372; 96374; C1729; J0295; J0456; J0696; J1170; J1650; J1815; J1940; J2250; J2405; J2704; J2710; J3010; J3480; J3490; J7060; J7613; Q9967; C1751; J0330; J2060; J2370; J7030; J7040; J7050

== ENCOUNTER 2017-07-21 16:56 | Inpatient (IN) | payer MEDICAID, OTHER ==
[~2017-07-21] VITALS: Ht 177.8 cm; Wt 78.0 kg
[~2017-07-21 16:56] MED LIST changes: -IBUP200C; -IBUP200C PO; +IBUP200C5; +IBUP200C5 PO; +RANI150T23; -RANI150T8; -TRAM-28 PO; +TRAM-47 PO
[2017-07-21] MEDS ORDERED: SODIUM CHLORIDE FLUSH 10ML SYR IVF ONE (17:30)
[2017-07-21 17:46] LABS: BASOPHILS # (AUTO) 0.04 x10^3/uL (0-0.1); BASOPHILS % (AUTO) 0 % (0-1); EOSINOPHILS # (AUTO) 0.09 x10^3/uL (0-0.4); EOSINOPHILS % (AUTO) 1 % (1-7); LYMPHOCYTES # (AUTO) 1.78 x10^3/uL (1-3.4); LYMPHOCYTES % (AUTO) 15 % (22-44); MD NO; MEAN CORPUSCULAR HEMOGLOBIN 35.6 pg (27.5-34.5); MEAN CORPUSCULAR HGB CONC 34.7 g/dL (33.2-36.2); MEAN CORPUSCULAR VOLUME 102.6 fL (81-97); MEAN PLATELET VOLUME 6.6 fL (7.4-10.4); MONOCYTES # (AUTO) 0.81 x10^3/uL (0.2-0.8); MONOCYTES % (AUTO) 7 % (2-9); NEUTROPHILS # (AUTO) 9.57 x10^3/uL (1.8-6.8); NEUTROPHILS % (AUTO) 78 % (42-75); PLATELET COUNT 374 x10^3/uL (130-400); RED BLOOD COUNT 4.17 x10^6/uL (4.38-5.82); RED CELL DISTRIBUTION WIDTH 14.9 % (9.4-14.8)
[2017-07-21 17:49] LABS: ALANINE AMINOTRANSFERASE 68 U/L (12-78); ALBUMIN 2.4 g/dL (3.4-5.0); ANION GAP 7 mmol/L (5-15); CHLORIDE 105 mmol/L (98-107); CREATININE 0.86 mg/dL (0.7-1.3)
[2017-07-21 17:54] LABS: ALKALINE PHOSPHATASE 207 U/L (45-117); BILIRUBIN,TOTAL 0.5 mg/dL (0.2-1.0); TOTAL PROTEIN 6.1 g/dL (6.4-8.2); TROPONIN I < 0.015 ng/mL (0.000-0.045)
[2017-07-21] MEDS ORDERED: GABA300C10 PO (18:24)
[2017-07-21] MEDS ORDERED: INSU100I34 SC (18:24)
[2017-07-21] MEDS ORDERED: ZOLP-413 PO (18:29)
[2017-07-21] MEDS ORDERED: INSU100I18 SC (18:29)
[2017-07-21] MEDS ORDERED: LISI5TAB7 PO (18:29)
[2017-07-21] MEDS ORDERED: METO5TAB2 PO (18:29)
[2017-07-21] MEDS ORDERED: ONDA4TAB10 PO (18:29)
[2017-07-21 18:58] LABS: MICROSCOPIC NOT IND
[2017-07-21 18:59] LABS: CULTURE INDICATED? NO
[2017-07-21] MEDS ORDERED: LORazepam 2 MG/ML, 1ML ONE ×2 (19:30→21:14)
[2017-07-21] MEDS: LORazepam 2 MG/ML, 1ML IVPush PRN ×2 (19:32→21:16)
[2017-07-21] MEDS ORDERED: DEXAMETHASONE 4 MG TABLET ONE (19:45)
[2017-07-21] MEDS ORDERED: DEXAMETHASONE 4 MG/ML, 1ML PO ONE (20:00)
[2017-07-21] MEDS ORDERED: AZITHROMYCIN 500 MG in SODIUM CHLORIDE 0.9% 250 ML IV ONE (20:00)
[2017-07-21] MEDS ORDERED: CEFTRIAXONE PMX 1GM/50ML 50 ML IVPB ONE (20:00)
[2017-07-21] MEDS ORDERED: CEFTRIAXONE PMX 1GM/50ML 50 ML ONE (20:02)
[2017-07-21] MEDS ORDERED: OMNIPAQUE 350 MG/ML, 100ML BOTTLE ONE (21:04)
[2017-07-21] MEDS ORDERED: hydrALAzine 20 MG/ML, 1ML IVPush PRN (22:00)
[2017-07-21] MEDS ORDERED: ONDANSETRON 2MG/ML, 2ML IVPush PRN (22:00)
[2017-07-21] MEDS ORDERED: LORazepam 2 MG/ML, 1ML IV PRN ×5 (22:00)
[2017-07-21] MEDS ORDERED: ONDANSETRON ODT 4 MG PO PRN (22:00)
[2017-07-21] MEDS ORDERED: ACETAMINOPHEN 325 MG TABLET PO PRN (22:00)
[2017-07-21] MEDS ORDERED: SODIUM CHLORIDE 0.9% 1,000ML IVBOLUS ONE (22:00)
[2017-07-21] MEDS ORDERED: PROMETHAZINE 12.5 MG SUPP PR PRN (22:00)
[2017-07-21] MEDS ORDERED: LEVOFLOXACIN/PMX 750MG/150ML 150 ML IV SCH (22:00)
[2017-07-21] MEDS: SODIUM CHLORIDE 0.9% 1,000 ML IV SCH (23:42)
[2017-07-21] MEDS: ENOXAPARIN 40 MG/0.4 ML SQ SCH (23:49)
[2017-07-21 23:54] VITALS: BP 123/78
[2017-07-22] MEDS ORDERED: MAGNESIUM SULFATE PMX 2GM/50ML 50 ML IV ONE (00:30)
[2017-07-22 02:06] VITALS: BP 132/89
[2017-07-22] MEDS: HYDROcodone/CHLORPHENIR ORAL SUSP PO PRN (03:45)
[2017-07-22 05:31] LABS: BASOPHILS # (AUTO) 0.04 x10^3/uL (0-0.1); BASOPHILS % (AUTO) 1 % (0-1); EOSINOPHILS # (AUTO) 0.05 x10^3/uL (0-0.4); EOSINOPHILS % (AUTO) 1 % (1-7); LYMPHOCYTES # (AUTO) 0.84 x10^3/uL (1-3.4); LYMPHOCYTES % (AUTO) 15 % (22-44); MD NO; MEAN CORPUSCULAR HEMOGLOBIN 34.6 pg (27.5-34.5); MEAN CORPUSCULAR HGB CONC 33.6 g/dL (33.2-36.2); MEAN PLATELET VOLUME 6.5 fL (7.4-10.4); MONOCYTES # (AUTO) 0.52 x10^3/uL (0.2-0.8); MONOCYTES % (AUTO) 9 % (2-9); NEUTROPHILS # (AUTO) 4.11 x10^3/uL (1.8-6.8); NEUTROPHILS % (AUTO) 74 % (42-75); PLATELET COUNT 195 x10^3/uL (130-400); RED BLOOD COUNT 3.53 x10^6/uL (4.38-5.82)
[2017-07-22 05:33] LABS: CHLORIDE 107 mmol/L (98-107)
[2017-07-22 05:45] LABS: ALANINE AMINOTRANSFERASE 47 U/L (12-78); ALBUMIN 1.8 g/dL (3.4-5.0); ALKALINE PHOSPHATASE 152 U/L (45-117); ANION GAP 8 mmol/L (5-15); BILIRUBIN,TOTAL 0.8 mg/dL (0.2-1.0); CALCIUM 7.8 mg/dL (8.5-10.1); CREATININE 0.86 mg/dL (0.7-1.3); TOTAL PROTEIN 4.9 g/dL (6.4-8.2)
[2017-07-22] MEDS ORDERED: INSULIN LISPRO 100 UNITS/ML, PEN SQ-INSULIN SCH (07:00)
[2017-07-22] MEDS: INSULIN LISPRO 100 UNITS/ML, PEN SQ-INSULIN SCH ×4 (07:00→20:04)
[2017-07-22 07:12] VITALS: BP 135/80
[2017-07-22] MEDS: FOLIC ACID 1 MG TABLET PO SCH (10:13)
[2017-07-22] MEDS: THIAMINE 100MG TABLET PO SCH (10:13)
[2017-07-22] MEDS: MULTIVITAMINS/MINERALS TABLET PO SCH (10:13)
[2017-07-22] MEDS: GABAPENTIN 300 MG CAPSULE PO SCH ×3 (10:52→20:01)
[2017-07-22] MEDS: SODIUM CHLORIDE 0.9% 1,000 ML IV SCH (12:00)
[2017-07-22] MEDS: INSULIN GLARGINE 100 UNITS/ML, PEN SQ-INSULIN SCH (12:04)
[2017-07-22] MEDS ORDERED: ALBU18HF INH (12:15)
[2017-07-22 12:36] LABS: CLOSTRIDIUM DIFFICILE ANTIGEN POSITIVE; CLOSTRIDIUM DIFFICILE TOXIN NEGATIVE (Negative)
[2017-07-22 13:03] VITALS: BP 157/98
[2017-07-22] MEDS ORDERED: ALBUTEROL/IPRATROPIUM 2.5MG/0.5MG, 3 ML ONE (13:21)
[2017-07-22] MEDS: CEFTRIAXONE PMX 2GM/50ML 50 ML IV SCH (14:26)
[2017-07-22] MEDS ORDERED: ALBUTEROL/IPRATROPIUM 2.5MG/0.5MG, 3 ML NPPB PRN (14:30)
[2017-07-22] MEDS: ALBUTEROL/IPRATROPIUM 2.5MG/0.5MG, 3 ML NPPB SCH ×2 (14:31→20:31)
[2017-07-22] MEDS: DOXYCYCLINE 100 MG in DEXTROSE 5% 250 ML IV SCH (16:09)
[2017-07-22] MEDS: GUAIFENESIN ER 600 MG TABLET PO SCH (20:01)
[2017-07-22 20:24] VITALS: BP 157/96
[2017-07-22] MEDS: ENOXAPARIN 40 MG/0.4 ML SQ SCH (22:00)
[2017-07-23] MEDS: DOXYCYCLINE 100 MG in DEXTROSE 5% 250 ML IV SCH ×2 (03:03→15:01)
[2017-07-23 04:23] VITALS: BP 139/94
[2017-07-23] MEDS: ALBUTEROL/IPRATROPIUM 2.5MG/0.5MG, 3 ML NPPB SCH ×4 (05:02→19:43)
[2017-07-23 05:58] LABS: HEMOGLOBIN A1C 6.9 % (4.2-6.3)
[2017-07-23 06:42] VITALS: BP 128/86
[2017-07-23 07:30] LABS: ALANINE AMINOTRANSFERASE 45 U/L (12-78); ALBUMIN 2.1 g/dL (3.4-5.0); ANION GAP 8 mmol/L (5-15); CHLORIDE 103 mmol/L (98-107); CREATININE 0.81 mg/dL (0.7-1.3)
[2017-07-23 07:32] LABS: ALKALINE PHOSPHATASE 155 U/L (45-117); BILIRUBIN,TOTAL 0.5 mg/dL (0.2-1.0); TOTAL PROTEIN 5.4 g/dL (6.4-8.2)
[2017-07-23] MEDS: LORazepam 2 MG/ML, 1ML IVPush PRN (08:25)
[2017-07-23] MEDS: FOLIC ACID 1 MG TABLET PO SCH (08:26)
[2017-07-23] MEDS: GUAIFENESIN ER 600 MG TABLET PO SCH ×2 (08:26→21:41)
[2017-07-23] MEDS: THIAMINE 100MG TABLET PO SCH (08:26)
[2017-07-23] MEDS: GABAPENTIN 300 MG CAPSULE PO SCH ×3 (08:26→21:41)
[2017-07-23] MEDS: INSULIN LISPRO 100 UNITS/ML, PEN SQ-INSULIN SCH ×4 (08:26→21:00)
[2017-07-23] MEDS: MULTIVITAMINS/MINERALS TABLET PO SCH (08:26)
[2017-07-23] MEDS: INSULIN GLARGINE 100 UNITS/ML, PEN SQ-INSULIN SCH (08:26)
[2017-07-23] MEDS ORDERED: CHLORDIAZEPOXIDE 25 MG CAPSULE PO PRN (10:30)
[2017-07-23 12:46] VITALS: BP 142/93
[2017-07-23] MEDS: CEFTRIAXONE PMX 2GM/50ML 50 ML IV SCH (14:02)
[2017-07-23] MEDS: CHLORDIAZEPOXIDE 25 MG CAPSULE PO SCH ×2 (16:32→21:41)
[2017-07-23 19:30] VITALS: BP 144/99
[2017-07-23] MEDS: ENOXAPARIN 40 MG/0.4 ML SQ SCH (21:41)
[2017-07-24 01:01] VITALS: BP 159/94
[2017-07-24] MEDS: DOXYCYCLINE 100 MG in DEXTROSE 5% 250 ML IV SCH ×2 (01:15→14:47)
[2017-07-24] MEDS: LORazepam 2 MG/ML, 1ML IVPush PRN ×3 (01:25→23:22)
[2017-07-24 05:27] LABS: BASOPHILS # (AUTO) 0.03 x10^3/uL (0-0.1); BASOPHILS % (AUTO) 1 % (0-1); EOSINOPHILS # (AUTO) 0.06 x10^3/uL (0-0.4); EOSINOPHILS % (AUTO) 2 % (1-7); LYMPHOCYTES # (AUTO) 0.63 x10^3/uL (1-3.4); LYMPHOCYTES % (AUTO) 19 % (22-44); MD NO; MEAN CORPUSCULAR HEMOGLOBIN 34.8 pg (27.5-34.5); MEAN CORPUSCULAR HGB CONC 33.7 g/dL (33.2-36.2); MEAN CORPUSCULAR VOLUME 103.2 fL (81-97); MEAN PLATELET VOLUME 6.4 fL (7.4-10.4); MONOCYTES # (AUTO) 0.28 x10^3/uL (0.2-0.8); MONOCYTES % (AUTO) 9 % (2-9); NEUTROPHILS # (AUTO) 2.28 x10^3/uL (1.8-6.8); NEUTROPHILS % (AUTO) 70 % (42-75); PLATELET COUNT 169 x10^3/uL (130-400)
[2017-07-24 06:25] VITALS: BP 142/96
[2017-07-24] MEDS: ALBUTEROL/IPRATROPIUM 2.5MG/0.5MG, 3 ML NPPB SCH ×4 (06:40→20:00)
[2017-07-24] MEDS: INSULIN LISPRO 100 UNITS/ML, PEN SQ-INSULIN SCH ×4 (07:00→23:08)
[2017-07-24] MEDS ORDERED: POTASSIUM CHLORIDE 20 MEQ TAB.ER.PRT PO ONE (09:30)
[2017-07-24] MEDS ORDERED: FUROSEMIDE 20 MG/2 ML IV ONE (09:30)
[2017-07-24] MEDS: FOLIC ACID 1 MG TABLET PO SCH (09:36)
[2017-07-24] MEDS: MULTIVITAMINS/MINERALS TABLET PO SCH (09:36)
[2017-07-24] MEDS: CHLORDIAZEPOXIDE 25 MG CAPSULE PO SCH ×3 (09:36→23:07)
[2017-07-24] MEDS: GABAPENTIN 300 MG CAPSULE PO SCH ×3 (09:36→23:07)
[2017-07-24] MEDS: GUAIFENESIN ER 600 MG TABLET PO SCH ×2 (09:36→23:07)
[2017-07-24] MEDS: INSULIN GLARGINE 100 UNITS/ML, PEN SQ-INSULIN SCH (09:37)
[2017-07-24] MEDS: THIAMINE 100MG TABLET PO SCH (09:37)
[2017-07-24] MEDS: VANCOMYCIN 50 MG/ML ORAL SUSP PO SCH ×3 (10:28→23:22)
[2017-07-24 12:53] VITALS: BP 126/86
[2017-07-24] MEDS: CEFTRIAXONE PMX 2GM/50ML 50 ML IV SCH (13:10)
[2017-07-24 18:39] VITALS: BP 118/82
[2017-07-24] MEDS: DOXYCYCLINE 100MG CAP PO SCH (23:08)
[2017-07-24] MEDS: ENOXAPARIN 40 MG/0.4 ML SQ SCH (23:08)
[2017-07-25 02:47] VITALS: BP 127/89
[2017-07-25] MEDS: VANCOMYCIN 50 MG/ML ORAL SUSP PO SCH ×4 (05:30→21:43)
[2017-07-25 07:19] LABS: ANION GAP 6 mmol/L (5-15); BASOPHILS # (AUTO) 0.02 x10^3/uL (0-0.1); BASOPHILS % (AUTO) 1 % (0-1); CALCIUM 8.3 mg/dL (8.5-10.1); CHLORIDE 106 mmol/L (98-107); CREATININE 0.85 mg/dL (0.7-1.3); EOSINOPHILS # (AUTO) 0.07 x10^3/uL (0-0.4); EOSINOPHILS % (AUTO) 2 % (1-7); LYMPHOCYTES # (AUTO) 0.59 x10^3/uL (1-3.4); LYMPHOCYTES % (AUTO) 16 % (22-44); MD NO; MEAN CORPUSCULAR HEMOGLOBIN 34.2 pg (27.5-34.5); MEAN CORPUSCULAR HGB CONC 33.2 g/dL (33.2-36.2); MEAN PLATELET VOLUME 6.6 fL (7.4-10.4); MONOCYTES # (AUTO) 0.41 x10^3/uL (0.2-0.8); MONOCYTES % (AUTO) 11 % (2-9); NEUTROPHILS # (AUTO) 2.56 x10^3/uL (1.8-6.8); NEUTROPHILS % (AUTO) 70 % (42-75); PLATELET COUNT 144 x10^3/uL (130-400); RED BLOOD COUNT 3.65 x10^6/uL (4.38-5.82); RED CELL DISTRIBUTION WIDTH 15.6 % (9.4-14.8)
[2017-07-25 08:20] VITALS: BP 132/82
[2017-07-25] MEDS: MULTIVITAMINS/MINERALS TABLET PO SCH (08:26)
[2017-07-25] MEDS: FOLIC ACID 1 MG TABLET PO SCH (08:26)
[2017-07-25] MEDS: DOXYCYCLINE 100MG CAP PO SCH ×2 (08:26→21:41)
[2017-07-25] MEDS: GUAIFENESIN ER 600 MG TABLET PO SCH ×2 (08:27→21:41)
[2017-07-25] MEDS: GABAPENTIN 300 MG CAPSULE PO SCH ×3 (08:27→21:42)
[2017-07-25] MEDS: THIAMINE 100MG TABLET PO SCH (08:27)
[2017-07-25] MEDS: CHLORDIAZEPOXIDE 25 MG CAPSULE PO SCH (08:27)
[2017-07-25] MEDS: INSULIN GLARGINE 100 UNITS/ML, PEN SQ-INSULIN SCH (08:38)
[2017-07-25] MEDS: INSULIN LISPRO 100 UNITS/ML, PEN SQ-INSULIN SCH ×4 (08:38→21:42)
[2017-07-25] MEDS: ALBUTEROL/IPRATROPIUM 2.5MG/0.5MG, 3 ML NPPB SCH ×3 (10:50→18:35)
[2017-07-25] MEDS: CEFTRIAXONE PMX 2GM/50ML 50 ML IV SCH (12:56)
[2017-07-25 15:46] VITALS: BP 127/84
[2017-07-25] MEDS: CHLORDIAZEPOXIDE 10 MG CAPSULE PO SCH (21:00)
[2017-07-25 21:18] VITALS: BP 117/78
[2017-07-25] MEDS: ENOXAPARIN 40 MG/0.4 ML SQ SCH (21:42)
[2017-07-26 02:06] VITALS: BP 131/81
[2017-07-26] MEDS: VANCOMYCIN 50 MG/ML ORAL SUSP PO SCH ×4 (04:19→23:42)
[2017-07-26 06:13] LABS: BASOPHILS # (AUTO) 0.09 x10^3/uL (0-0.1); BASOPHILS % (AUTO) 2 % (0-1); EOSINOPHILS # (AUTO) 0.09 x10^3/uL (0-0.4); EOSINOPHILS % (AUTO) 2 % (1-7); LYMPHOCYTES # (AUTO) 0.57 x10^3/uL (1-3.4); LYMPHOCYTES % (AUTO) 12 % (22-44); MD NO; MEAN CORPUSCULAR HEMOGLOBIN 35.3 pg (27.5-34.5); MEAN CORPUSCULAR HGB CONC 33.9 g/dL (33.2-36.2); MEAN CORPUSCULAR VOLUME 103.9 fL (81-97); MONOCYTES # (AUTO) 0.39 x10^3/uL (0.2-0.8); MONOCYTES % (AUTO) 8 % (2-9); NEUTROPHILS # (AUTO) 3.55 x10^3/uL (1.8-6.8); NEUTROPHILS % (AUTO) 76 % (42-75); PLATELET COUNT 148 x10^3/uL (130-400); RED BLOOD COUNT 3.83 x10^6/uL (4.38-5.82); RED CELL DISTRIBUTION WIDTH 15.3 % (9.4-14.8)
[2017-07-26 06:20] LABS: ANION GAP 6 mmol/L (5-15); CALCIUM 9.1 mg/dL (8.5-10.1); CHLORIDE 106 mmol/L (98-107); CREATININE 0.92 mg/dL (0.7-1.3)
[2017-07-26 06:45] LABS: FOLATE LEVEL 11.7 ng/mL (3.1-17.5); THYROID STIMULATING HORMONE 0.705 mIU/L (0.358-3.740)
[2017-07-26] MEDS: ALBUTEROL/IPRATROPIUM 2.5MG/0.5MG, 3 ML NPPB SCH ×2 (07:00→19:21)
[2017-07-26 07:44] LABS: ANION GAP 7 mmol/L (5-15); CALCIUM 8.4 mg/dL (8.5-10.1); CHLORIDE 105 mmol/L (98-107); CREATININE 0.86 mg/dL (0.7-1.3)
[2017-07-26 07:57] VITALS: BP 127/78
[2017-07-26] MEDS: INSULIN LISPRO 100 UNITS/ML, PEN SQ-INSULIN SCH ×4 (08:59→21:15)
[2017-07-26] MEDS: INSULIN GLARGINE 100 UNITS/ML, PEN SQ-INSULIN SCH (08:59)
[2017-07-26] MEDS: FOLIC ACID 1 MG TABLET PO SCH (09:00)
[2017-07-26] MEDS: CHLORDIAZEPOXIDE 10 MG CAPSULE PO SCH ×2 (09:00→21:04)
[2017-07-26] MEDS: GABAPENTIN 300 MG CAPSULE PO SCH ×3 (09:00→21:03)
[2017-07-26] MEDS: THIAMINE 100MG TABLET PO SCH (09:00)
[2017-07-26] MEDS: MULTIVITAMINS/MINERALS TABLET PO SCH (09:00)
[2017-07-26] MEDS: DOXYCYCLINE 100MG CAP PO SCH ×2 (09:00→21:03)
[2017-07-26] MEDS: GUAIFENESIN ER 600 MG TABLET PO SCH ×2 (09:00→21:03)
[2017-07-26] MEDS ORDERED: INSULIN GLARGINE 100 UNITS/ML, PEN SQ-INSULIN SCH (12:30)
[2017-07-26] MEDS ORDERED: INSULIN GLARGINE 100 UNITS/ML, PEN SQ-INSULIN ONE (12:30)
[2017-07-26] MEDS: CEFTRIAXONE PMX 2GM/50ML 50 ML IV SCH (14:16)
[2017-07-26 14:32] VITALS: BP 112/73
[2017-07-26 18:54] VITALS: BP 116/80
[2017-07-26] MEDS: ENOXAPARIN 40 MG/0.4 ML SQ SCH (21:05)
[2017-07-27 00:51] VITALS: BP 117/79
[2017-07-27] MEDS: VANCOMYCIN 50 MG/ML ORAL SUSP PO SCH ×4 (05:54→22:47)
[2017-07-27 06:52] LABS: BASOPHILS # (AUTO) 0.02 x10^3/uL (0-0.1); BASOPHILS % (AUTO) 1 % (0-1); EOSINOPHILS # (AUTO) 0.14 x10^3/uL (0-0.4); EOSINOPHILS % (AUTO) 3 % (1-7); LYMPHOCYTES # (AUTO) 0.71 x10^3/uL (1-3.4); LYMPHOCYTES % (AUTO) 14 % (22-44); MD NO; MEAN CORPUSCULAR HEMOGLOBIN 34.7 pg (27.5-34.5); MEAN CORPUSCULAR HGB CONC 33.4 g/dL (33.2-36.2); MEAN CORPUSCULAR VOLUME 103.6 fL (81-97); MONOCYTES % (AUTO) 10 % (2-9); NEUTROPHILS # (AUTO) 3.79 x10^3/uL (1.8-6.8); NEUTROPHILS % (AUTO) 73 % (42-75); PLATELET COUNT 155 x10^3/uL (130-400); RED BLOOD COUNT 3.83 x10^6/uL (4.38-5.82); RED CELL DISTRIBUTION WIDTH 15.4 % (9.4-14.8)
[2017-07-27 07:01] LABS: ANION GAP 4 mmol/L (5-15); CALCIUM 9.1 mg/dL (8.5-10.1); CHLORIDE 110 mmol/L (98-107); CREATININE 1.07 mg/dL (0.7-1.3)
[2017-07-27 07:21] VITALS: BP 109/75
[2017-07-27] MEDS: CHLORDIAZEPOXIDE 10 MG CAPSULE PO SCH (08:32)
[2017-07-27] MEDS: MULTIVITAMINS/MINERALS TABLET PO SCH (08:32)
[2017-07-27] MEDS: GABAPENTIN 300 MG CAPSULE PO SCH ×3 (08:32→20:56)
[2017-07-27] MEDS: THIAMINE 100MG TABLET PO SCH (08:32)
[2017-07-27] MEDS: GUAIFENESIN ER 600 MG TABLET PO SCH ×2 (08:32→20:56)
[2017-07-27] MEDS: INSULIN LISPRO 100 UNITS/ML, PEN SQ-INSULIN SCH ×4 (08:33→21:28)
[2017-07-27] MEDS: FOLIC ACID 1 MG TABLET PO SCH (08:33)
[2017-07-27] MEDS: DOXYCYCLINE 100MG CAP PO SCH ×2 (08:33→20:56)
[2017-07-27] MEDS ORDERED: INSULIN GLARGINE 100 UNITS/ML, PEN SQ-INSULIN SCH (09:00)
[2017-07-27] MEDS: ALBUTEROL/IPRATROPIUM 2.5MG/0.5MG, 3 ML NPPB SCH ×2 (09:48→19:55)
[2017-07-27] MEDS: CEFTRIAXONE PMX 2GM/50ML 50 ML IV SCH (12:23)
[2017-07-27] MEDS: HYDROcodone/CHLORPHENIR ORAL SUSP PO PRN (12:24)
[2017-07-27 12:55] VITALS: BP 114/70
[2017-07-27 14:24] LABS: ANION GAP 6 mmol/L (5-15); CALCIUM 8.8 mg/dL (8.5-10.1); CHLORIDE 103 mmol/L (98-107); CREATININE 1.12 mg/dL (0.7-1.3)
[2017-07-27] MEDS ORDERED: SODIUM POLYSTYRENE SULFONATE ORAL SUSP PO ONE (15:00)
[2017-07-27] MEDS ORDERED: DEXTROSE 50%, 50ML SYRINGE IVPush ONE (15:00)
[2017-07-27] MEDS ORDERED: INSULIN REGULAR 100 UNITS/ML, 3ML VIAL IVPush ONE (15:00)
[2017-07-27] MEDS: AMPICILLIN/SULBACTAM 3 GM in SODIUM CHLORIDE 0.9% 100 ML IV SCH (17:30)
[2017-07-27 17:36] LABS: ANION GAP 6 mmol/L (5-15); CALCIUM 8.9 mg/dL (8.5-10.1); CHLORIDE 106 mmol/L (98-107); CREATININE 1.14 mg/dL (0.7-1.3)
[2017-07-27 18:46] VITALS: BP 106/72
[2017-07-27] MEDS ORDERED: CHLORDIAZEPOXIDE 10 MG CAPSULE PO SCH (21:00)
[2017-07-27] MEDS: ENOXAPARIN 40 MG/0.4 ML SQ SCH (21:29)
[2017-07-28 02:11] VITALS: BP 100/71
[2017-07-28] MEDS: AMPICILLIN/SULBACTAM 3 GM in SODIUM CHLORIDE 0.9% 100 ML IV SCH ×2 (02:21→08:49)
[2017-07-28] MEDS: VANCOMYCIN 50 MG/ML ORAL SUSP PO SCH ×2 (05:29→11:48)
[2017-07-28 05:44] LABS: BASOPHILS # (AUTO) 0.13 x10^3/uL (0-0.1); BASOPHILS % (AUTO) 2 % (0-1); EOSINOPHILS # (AUTO) 0.19 x10^3/uL (0-0.4); EOSINOPHILS % (AUTO) 3 % (1-7); LYMPHOCYTES % (AUTO) 13 % (22-44); MD NO; MEAN CORPUSCULAR HEMOGLOBIN 35.2 pg (27.5-34.5); MEAN CORPUSCULAR HGB CONC 33.9 g/dL (33.2-36.2); MEAN CORPUSCULAR VOLUME 103.8 fL (81-97); MEAN PLATELET VOLUME 7.7 fL (7.4-10.4); MONOCYTES # (AUTO) 0.64 x10^3/uL (0.2-0.8); MONOCYTES % (AUTO) 9 % (2-9); NEUTROPHILS # (AUTO) 5.06 x10^3/uL (1.8-6.8); NEUTROPHILS % (AUTO) 73 % (42-75); PLATELET COUNT 157 x10^3/uL (130-400); RED BLOOD COUNT 3.67 x10^6/uL (4.38-5.82); RED CELL DISTRIBUTION WIDTH 15.2 % (9.4-14.8)
[2017-07-28 05:56] LABS: ANION GAP 8 mmol/L (5-15); CALCIUM 7.9 mg/dL (8.5-10.1); CHLORIDE 107 mmol/L (98-107)
[2017-07-28 06:01] LABS: CREATININE 0.97 mg/dL (0.7-1.3)
[2017-07-28 06:40] VITALS: BP 98/63
[2017-07-28] MEDS ORDERED: SODIUM CHLORIDE 0.9%, 500ML IVBOLUS ONE (07:00)
[2017-07-28] MEDS: GABAPENTIN 300 MG CAPSULE PO SCH ×2 (08:50→16:54)
[2017-07-28] MEDS: GUAIFENESIN ER 600 MG TABLET PO SCH (08:50)
[2017-07-28] MEDS: FOLIC ACID 1 MG TABLET PO SCH (08:50)
[2017-07-28] MEDS: MULTIVITAMINS/MINERALS TABLET PO SCH (08:50)
[2017-07-28] MEDS: INSULIN LISPRO 100 UNITS/ML, PEN SQ-INSULIN SCH ×3 (08:50→16:54)
[2017-07-28] MEDS: DOXYCYCLINE 100MG CAP PO SCH (08:51)
[2017-07-28] MEDS: THIAMINE 100MG TABLET PO SCH (08:51)
[2017-07-28] MEDS ORDERED: INSULIN GLARGINE 100 UNITS/ML, PEN SQ-INSULIN SCH (09:00)
[2017-07-28] MEDS: ALBUTEROL/IPRATROPIUM 2.5MG/0.5MG, 3 ML NPPB SCH (11:46)
[2017-07-28 12:37] VITALS: BP 95/67
[2017-07-28 15:14] VITALS: BP 119/84
[2017-07-28] MEDS: SODIUM CHLORIDE 0.9% 500 ML IV SCH ×2 (15:30→16:30)
[2017-07-28] MEDS ORDERED: INSU100I13 SQ-INSULIN (17:18)
[2017-07-28] MEDS ORDERED: DOXY100T9 PO (17:18)
[2017-07-28] MEDS ORDERED: GUAI600T31 PO (17:18)
[2017-07-28] MEDS ORDERED: FOLI-17 PO (17:18)
[2017-07-28] MEDS ORDERED: VANC1VIA3 PO (17:18)
[2017-07-28] MEDS ORDERED: THIA100T6 PO (17:18)
[2017-07-28] MEDS ORDERED: AMOX1TAB64 PO (17:18)
== END 2017-07-28 17:55 | disposition home or self-care (01) | DRG 871 ==
LOC: ED 21:12 → EDIP 21:30 → 4EST 22:49
PROVIDERS: ADMIT Hospitalist; ATTEND Hospitalist
DX: A41.9 Sepsis, unspecified organism (principal); E43 Unspecified severe protein-calorie malnutrition; J96.01 Acute respiratory failure with hypoxia; I11.0 Hypertensive heart disease with heart failure; I27.82 Chronic pulmonary embolism; I50.1 Left ventricular failure, unspecified; J15.9 Unspecified bacterial pneumonia; A04.72 Enterocolitis due to Clostridium difficile, not specified as recurrent; F10.239 Alcohol dependence with withdrawal, unspecified; D75.89 Other specified diseases of blood and blood-forming organs; E10.65 Type 1 diabetes mellitus with hyperglycemia; Z68.24 Body mass index [BMI] 24.0-24.9, adult; E87.5 Hyperkalemia; G89.29 Other chronic pain; J06.9 Acute upper respiratory infection, unspecified; R65.20 Severe sepsis without septic shock; Z79.4 Long term (current) use of insulin; Z80.42 Family history of malignant neoplasm of prostate; Z85.528 Personal history of other malignant neoplasm of kidney; Z87.891 Personal history of nicotine dependence; Z90.5 Acquired absence of kidney; Z91.19 Patient's noncompliance with other medical treatment and regimen; Z88.8 Allergy status to other drugs, medicaments and biological substances; Z91.013 Allergy to seafood
CPT/HCPCS: 36415; 71045; 71046; 71275; 80048; 80053; 81003; 82607; 82746; 82962; 83036; 83605; 83735; 83880; 84100; 84443; 84484; 85025; 87040; 87070; 87205; 87324; 87493; 93005; 93306; 94640; 96365; 96366; 96375; 96376; 99291; J0295; J0456; J0696; J1650; J1815; J1956; J3370; J7060; J7620; Q9967; J1940; J2060; J3475; J7030; J7040; J7050